=== PATIENT | female | born 1965 | race Asian ===

== ENCOUNTER 2019-12-26 12:16 | Emergency (ER) | payer OTHER ==
[~2019-12-26] VITALS: Ht 149.9 cm; Wt 54.4 kg
[2019-12-26] MEDS ORDERED: methylPREDNISolone SOD SUCC 125 MG/2 ML VL IV ONE (12:30)
[2019-12-26 12:34] VITALS: BP 153/105
[2019-12-26] MEDS ORDERED: ACETAMINOPHEN 325 MG TAB PO ONE (13:00)
[2019-12-26 13:09] LABS: Basophils # (auto) 0 10 ^3/uL (0-0.2); Eosinophils # (auto) 0 10 ^3/uL (0-0.8); Eosinophils % (auto) 0.2 % (0.0-7.0); Hemoglobin 13.6 g/dL (12.2-16.2); Lymphocytes # (auto) 0.9 10 ^3/uL (0.4-5.4); Neutrophils # (auto) 2.1 10 ^3/uL (1.6-8.6); Nucleated Red Blood Cells % 0.2 %; White Blood Cell 3.3 10^3/uL (4.4-10.8)
[2019-12-26 13:10] LABS: Basophils % (auto) 0.6 % (0.0-2.0); Hematocrit 41.2 % (36.0-46.0); Lymphocytes % (auto) 27.6 % (10.0-50.0); Mean Corpuscular Hemoglobin 25.6 pg (28.0-32.0); Mean Corpuscular Volume 77.5 fL (80.0-100.0); Monocytes # (auto) 0.2 10 ^3/uL (0-1.3); Monocytes % (auto) 6.4 % (0.0-12.0); Neutrophils % (auto) 65.2 % (37.0-80.0); Platelet Count (auto) 113 10^3/uL (140-450); Red Blood Cells 5.32 10^6/uL (4.0-5.20)
[2019-12-26 13:18] LABS: Albumin 3.8 g/dL (3.4-5.0); Calcium 8.3 mg/dL (8.5-10.1); Potassium 3.2 mmol/L (3.5-5.1)
[2019-12-26 13:21] LABS: BUN/Creatinine Ratio 16.1; Bilirubin, Total 0.3 mg/dL (0.2-1.0); Total Protein 7.7 g/dL (6.4-8.2)
== END 2019-12-26 14:40 | disposition home or self-care (01) ==
LOC: ER 12:16
DX: U07.1 COVID-19 (principal)
CPT/HCPCS: 36415; 71045; 80053; 82728; 85025; 85379; 96374; 99285; J2930; U0003; 93005

== ENCOUNTER 2019-12-30 22:12 | Inpatient (IN) | payer OTHER ==
[~2019-12-30] VITALS: Ht 149.9 cm; Wt 55.3 kg
[2019-12-31] MEDS ORDERED: ASCORBIC ACID 500 MG TAB PO ONE (00:45)
[2019-12-31] MEDS ORDERED: DexAMETHasone INJECTION 10 MG in D5W 5% 50 ML IV ONE (00:45)
[2019-12-31] MEDS ORDERED: AZITHROMYCIN 500MG/ 250ML 250 ML IV ONE (00:45)
[2019-12-31] MEDS ORDERED: ZINC SULFATE 220mg CAP or TAB PO ONE (00:45)
[2019-12-31] MEDS ORDERED: DexAMETHasone SOD PHOS 10MG/1ML VIAL INJ IV ONE (03:15)
[2019-12-31 03:25] LABS: Basophils # (auto) 0 10 ^3/uL (0-0.2); Basophils % (auto) 0.1 % (0.0-2.0); Eosinophils # (auto) 0 10 ^3/uL (0-0.8); Hematocrit 41.1 % (36.0-46.0); Lymphocytes # (auto) 0.9 10 ^3/uL (0.4-5.4); Monocytes # (auto) 0.5 10 ^3/uL (0-1.3)
[2019-12-31 03:27] LABS: Hemoglobin 13.9 g/dL (12.2-16.2); Lymphocytes % (auto) 9.9 % (10.0-50.0); Mean Corpuscular Hgb Conc. 33.7 g/dL (32.0-36.0); Monocytes % (auto) 5.1 % (0.0-12.0); Neutrophils # (auto) 7.5 10 ^3/uL (1.6-8.6); Neutrophils % (auto) 84.9 % (37.0-80.0); Nucleated Red Blood Cells % 0.1 %; Platelet Count (auto) 208 10^3/uL (140-450); Red Blood Cells 5.33 10^6/uL (4.0-5.20); Red Cell Distribution Width 14.3 % (11.8-14.3); White Blood Cell 8.9 10^3/uL (4.4-10.8)
[2019-12-31 03:44] LABS: Anion Gap 7 (5-15); Blood Urea Nitrogen 21 mg/dL (7-18); Calcium 8.7 mg/dL (8.5-10.1); Carbon Dioxide 27 mmol/L (21-32); Chloride 104 mmol/L (98-107); Glucose 115 mg/dL (74-106); Potassium 3.6 mmol/L (3.5-5.1); Sodium 138 mmol/L (136-145)
[2019-12-31 03:53] LABS: Alanine Aminotransferase 78 U/L (13-56); Alkaline Phosphatase 97 U/L (45-117); Aspartate Aminotransferase 49 U/L (15-37); BUN/Creatinine Ratio 31.8; Bilirubin, Total 0.3 mg/dL (0.2-1.0); GFR African American 120 mL/min; GFR Non-African American 99 mL/min; INR 0.98 (0.9-1.15); Partial Thromboplastin Time 29.2 sec (23.0-31.2); Total Protein 7.5 g/dL (6.4-8.2)
[2019-12-31] MEDS ORDERED: ONDANSETRON HCL 4 MG/2 ML VIAL IV PRN (04:15)
[2019-12-31] MEDS ORDERED: ACETAMINOPHEN 325 MG TAB PO PRN (04:15)
[2019-12-31] MEDS ORDERED: HYDROcodone-ACET 5/325MG TAB PO PRN (04:15)
[2019-12-31] MEDS ORDERED: ACETAMINOPHEN 500 MG TAB PO PRN (04:15)
[2019-12-31] MEDS ORDERED: DOCUSATE SOD 100 MG CAP PO PRN (04:15)
[2019-12-31] MEDS ORDERED: MORPHINE SULF INJ 2 MG/ML SYRINGE 1ML IV PRN (04:15)
[2019-12-31 04:16] VITALS: BP 121/71
[2019-12-31] MEDS: ALBUTEROL SULF HFA 90MCG INH 200DOSE IN SCH ×4 (06:00→21:54)
[2019-12-31] MEDS: SODIUM CHLORIDE 0.9% 1,000 ML IV SCH ×2 (06:59→20:30)
[2019-12-31] MEDS: DexAMETHasone SOD PHOS 10MG/1ML VIAL INJ IV SCH (08:14)
[2019-12-31] MEDS: ZINC SULFATE 220mg CAP or TAB PO SCH (08:14)
[2019-12-31] MEDS: ASCORBIC ACID 1,000 MG TAB PO SCH (08:15)
[2019-12-31] MEDS: DOXYCYCLINE 100 MG TAB/CAP PO SCH ×2 (08:15→22:51)
[2019-12-31] MEDS: CARVEDILOL 3.125 MG TAB PO SCH ×2 (08:15→22:51)
[2019-12-31] MEDS: ENOXAPARIN SOD 40 MG/0.4 ML SYRINGE SC SCH (08:16)
[2019-12-31] MEDS: ATORVASTATIN 20 MG TAB PO SCH (18:19)
[2019-12-31 20:20] VITALS: BP 120/83
--- NOTE | 2019-12-31 20:30 | NUR ---
tele admit from ed pt arrived via wheelchair awake, alert and oriented. pt on 3L nc no distress noted. pt denies pain, pt able to transfer to bed with minimal assistance. pt oriented to this nurse, the room, bed control, call light usage and restroom. pt encouraged to call for help for use of restroom facility rt complaint of sobue and generalized weakness, to which pt agreed. pt bed locked, low and 2x rails up. pt updated on plan of care. pt call light in reach, this nurse to round q1hr and prn.
[2019-12-31 22:00] VITALS: BP 115/77
[2020-01-01 05:00] VITALS: BP 124/81
[2020-01-01] MEDS: ALBUTEROL SULF HFA 90MCG INH 200DOSE IN SCH ×3 (07:30→22:14)
--- NOTE | 2020-01-01 07:50 | NUR ---
OPENING SHIFT NOTE: PATIENT RESTING IN BED AWAKE, UPDATED ON PLAN OF CARE. RESPIRATIONS EVEN AND UNLABORED PATIENT ON 3LNC. CALL LIGHT WITHIN REACH, ISOLATION PRECAUTIONS. WILL CONTINUE TO MONITOR.
[2020-01-01 08:18] LABS: Basophils # (auto) 0 10 ^3/uL (0-0.2); Basophils % (auto) 0.1 % (0.0-2.0); Eosinophils # (auto) 0 10 ^3/uL (0-0.8); Hematocrit 38.4 % (36.0-46.0); Lymphocytes # (auto) 1.7 10 ^3/uL (0.4-5.4); Mean Corpuscular Hgb Conc. 33.9 g/dL (32.0-36.0); Monocytes # (auto) 0.9 10 ^3/uL (0-1.3); Platelet Count (auto) 253 10^3/uL (140-450)
[2020-01-01 08:22] LABS: Lymphocytes % (auto) 27.6 % (10.0-50.0); Mean Corpuscular Hemoglobin 25.8 pg (28.0-32.0); Mean Corpuscular Volume 76.1 fL (80.0-100.0); Neutrophils # (auto) 3.5 10 ^3/uL (1.6-8.6); Neutrophils % (auto) 57.3 % (37.0-80.0); Nucleated Red Blood Cells % 0.1 %; Red Blood Cells 5.04 10^6/uL (4.0-5.20); Red Cell Distribution Width 14.3 % (11.8-14.3); White Blood Cell 6.1 10^3/uL (4.4-10.8)
[2020-01-01 08:33] LABS: Albumin 2.7 g/dL (3.4-5.0); Calcium 8.9 mg/dL (8.5-10.1); Potassium 3.6 mmol/L (3.5-5.1)
[2020-01-01 08:36] LABS: Bilirubin, Total 0.3 mg/dL (0.2-1.0); Total Protein 6.8 g/dL (6.4-8.2)
[2020-01-01 08:59] LABS: CRP High Sensitivity 4.05 mg/dL (< 0.3)
[2020-01-01 09:00] VITALS: BP 108/81
[2020-01-01] MEDS: DexAMETHasone SOD PHOS 10MG/1ML VIAL INJ IV SCH (09:57)
[2020-01-01] MEDS: ZINC SULFATE 220mg CAP or TAB PO SCH (09:58)
[2020-01-01] MEDS: CARVEDILOL 3.125 MG TAB PO SCH ×2 (09:59→22:00)
[2020-01-01] MEDS: DOXYCYCLINE 100 MG TAB/CAP PO SCH ×2 (09:59→22:44)
[2020-01-01] MEDS: ASCORBIC ACID 1,000 MG TAB PO SCH (09:59)
[2020-01-01] MEDS: ENOXAPARIN SOD 40 MG/0.4 ML SYRINGE SC SCH (11:52)
[2020-01-01 13:00] VITALS: BP 120/80
--- NOTE | 2020-01-01 13:24 | NUR ---
ASSISTED PATIENT TO TOILET: UTILIZED 20FT NASAL CANNULA AND HELD PATIENT'S HAND. PATIENT TOLERATED WELL STEADY GAIT, BREATHING THROUGH NOSE LOUDLY, APPEARS WEAK. PATIENT ABLE TO USE TOILET INDEPENDENTLY. WILL CONTINUE TO MONITOR.
[2020-01-01] MEDS: SODIUM CHLORIDE 0.9% 1,000 ML IV SCH (15:39)
[2020-01-01 17:12] VITALS: BP 124/77
[2020-01-01] MEDS: ATORVASTATIN 20 MG TAB PO SCH (18:38)
--- NOTE | 2020-01-01 18:55 | NUR ---
CARE ENDORSED TO NOC RN.
--- NOTE | 2020-01-01 20:00 | NUR ---
Opening Shift Note Assumed care of patient. Awake, alert and oriented x4. No S/S of distress/SOB or pain. Pt is sitting up in bed, on 3L nasal cannula with even and unlabored respirations. Instructed on POC and to call for assist PRN. Informed pt to call this RN for assistance to the bathroom as pt has a weak gait. Pt verbalized understanding. Bed locked, in lowest position, call light within reach, side rails up x2. Will continue to monitor for changes Q1hr and PRN.
[2020-01-01 22:27] VITALS: BP 114/76
[2020-01-02 05:00] VITALS: BP 121/76
[2020-01-02] MEDS: ALBUTEROL SULF HFA 90MCG INH 200DOSE IN SCH ×3 (07:29→22:54)
--- NOTE | 2020-01-02 07:30 | NUR ---
Opening Shift Note Assumed care of patient, awake and alert. No S/S of distress/SOB or pain. Instructed on POC and to call for assist PRN, will continue to monitor for changes Q1hr and PRN. Fall precautions in place per safety protocol.
[2020-01-02 09:17] VITALS: BP 110/70
[2020-01-02] MEDS: ENOXAPARIN SOD 40 MG/0.4 ML SYRINGE SC SCH (09:56)
[2020-01-02] MEDS: ZINC SULFATE 220mg CAP or TAB PO SCH (09:56)
[2020-01-02] MEDS: DOXYCYCLINE 100 MG TAB/CAP PO SCH ×2 (09:56→23:24)
[2020-01-02] MEDS: DexAMETHasone SOD PHOS 10MG/1ML VIAL INJ IV SCH (09:56)
[2020-01-02] MEDS: ASCORBIC ACID 1,000 MG TAB PO SCH (09:56)
[2020-01-02] MEDS: CARVEDILOL 3.125 MG TAB PO SCH ×2 (10:00→22:00)
--- NOTE | 2020-01-02 12:42 | NUR ---
Est energy needs 1227-3699 kcal (30-35 kcal/kg 54.4kg) Est protein needs 44-54g (0.8-1g/kg BW 54.4kg) Will reassess prn. Addendum: 01/02/20 at [address] Amended: Links added.
[2020-01-02 13:13] VITALS: BP 132/92
--- NOTE | 2020-01-02 16:28 | NUR ---
Assessment Unable to speak to patient. Regarding home oxygen at 2 l/min. Contact DAVID Paris regarding home oxygen. Per DAVID Paris she will fax authorization to [facility]. Faxed clinical information to [facility] requesting for oxygen to be deliver to front lobby.
--- NOTE | 2020-01-02 16:30 | NUR ---
Hospitalist at bedside MD Gomez at bedside, aware of patient status. Per MD Gomez, place social service consult for home O2 then D/C patient. Will carry out new orders and cont to monitor patient.
[2020-01-02 17:00] VITALS: BP 118/82
--- NOTE | 2020-01-02 17:30 | NUR ---
Social Service Per Tiana from social services analyst patient's O2 cannot be arranged for today as Alexandra from [facility] medical states [employer] is closed now and O2 will have to be arranged for tomorrow. MD Gomez notified and gave orders to hold D/C for tomorrow when O2 is delivered. Will cont to monitor patient.
[2020-01-02] MEDS: ATORVASTATIN 20 MG TAB PO SCH (18:49)
--- NOTE | 2020-01-02 20:00 | NUR ---
Opening Shift Note Assumed care of patient. Awake, alert and oriented x4. No S/S of distress/SOB or pain. Pt is sitting up in bed, on room air with even and unlabored respirations. Instructed on POC and to call for assist PRN. Informed pt to call this RN for assistance to the bathroom as pt has a weak gait. Pt verbalized understanding. Bed locked, in lowest position, call light within reach, side rails up x2. Will continue to monitor for changes Q1hr and PRN.
[2020-01-02 22:00] VITALS: BP 117/83
[2020-01-03 01:32] VITALS: BP 117/83
[2020-01-03 05:00] VITALS: BP 144/88
[2020-01-03] MEDS: ALBUTEROL SULF HFA 90MCG INH 200DOSE IN SCH ×2 (07:05→14:40)
[2020-01-03] MEDS: DexAMETHasone SOD PHOS 10MG/1ML VIAL INJ IV SCH (08:39)
[2020-01-03] MEDS: DOXYCYCLINE 100 MG TAB/CAP PO SCH (08:40)
[2020-01-03] MEDS: ENOXAPARIN SOD 40 MG/0.4 ML SYRINGE SC SCH (08:40)
[2020-01-03] MEDS: ZINC SULFATE 220mg CAP or TAB PO SCH (08:40)
[2020-01-03] MEDS: ASCORBIC ACID 1,000 MG TAB PO SCH (08:40)
[2020-01-03 09:00] VITALS: BP 112/80
[2020-01-03] MEDS: CARVEDILOL 3.125 MG TAB PO SCH (09:58)
--- NOTE | 2020-01-03 11:30 | NUR ---
D/C Planning DAVID Paris advised me order needs to be redirected to [facility]. Faxed clinical information to [facility]. Received a call from DAVID Paris advising me home oxygen will be deliver to front lobby between 12-14:00. Informed SANA Blanca.
[2020-01-03 13:00] VITALS: BP 123/79
[2020-01-03 13:20] VITALS: BP 123/79
--- NOTE | 2020-01-03 14:31 | NUR ---
Discharge instructions given as ordered. Encourage to follow up with PMD as instructed. All questions and concerns addressed. Patient verbalized understanding. Medication reconciliation form completed and copy given to patient. IV removed with catheter intact, pressure dressing applied. Patient taken to vehicle via wheelchair with all personal belongings, accompanied by staff. No distress noted at time of departure.
== END 2020-01-03 14:30 | disposition home or self-care (01) | DRG 177 ==
LOC: ER 22:12 → TELE 22:13 → MERGE 22:13 → EAST 12-31 19:50
PROVIDERS: ADMIT Hospitalist; ATTEND Internal Medicine
DX: U07.1 COVID-19 (principal); J96.01 Acute respiratory failure with hypoxia; J12.89 Other viral pneumonia; J98.11 Atelectasis; E78.5 Hyperlipidemia, unspecified; I10 Essential (primary) hypertension; E88.09 Other disorders of plasma-protein metabolism, not elsewhere classified; R74.0 Nonspecific elevation of levels of transaminase and lactic acid dehydrogenase [LDH]; Z79.899 Other long term (current) drug therapy
CPT/HCPCS: 36415; 71045; 80053; 82728; 83615; 83735; 84484; 85025; 85379; 85610; 85730; 86141; 93005; 94640; G0378; J1100; J7060